=== PATIENT | female | born 1960 | race Caucasian/White ===

== ENCOUNTER → 2016-07-01 | Outpatient (REF) | payer OTHER ==
[~2016-07-01] MED LIST: AMLO5TAB2 PO; ASPI325T PO; ASPI81TA2 PO; ATEN50TA2 PO; ATOR1TAB21 PO; BENA10TA PO; CLON-412 PO; CLON0.3D TD; CRES20TA PO; DRIS50002 PO; DYAZCA PO; FLEEENE4 PR; GEMF600T PO; HYDR500C12 PO; HYDR50TA PO; LEVO100T5 PO; LEVO25TABR GT; LIDO5DIS36 TD; LORT5TAB PO; MAPA325T2 PO; MILKSUS PO; MIRA3350 PO; MULTTAB4 PO; NEUR100C PO; NYST10CR TOP; OMEP20CA3 PO; PAXI20TA3 PO; PHEN100VL PO; QUES4POW PO; SENO8.6T2 PO; TYLE325T5 PO; VISKEN PO; VITA100L PO; WARF05TA PO; ZOFR20TA PO
[2016-07-01 09:32] LABS: BASO % 0.6 % (0.0-1.0); EOS # 0.1 K/mm3 (0.0-0.50); LARGE UNSTAINED CELL # 0.1 K/mm3 (0.0-0.4); LARGE UNSTAINED CELL % 2.6 % (0.0-4.0); LYMPH # 0.7 K/mm3 (1.5-4.5); LYMPH % 19.7 % (24.0-44.0); MEAN CORPUSCULAR HEMOGLOBIN 37.8 pg (27.0-33.0); MEAN CORPUSCULAR HGB CONC 35.3 g/dl (32.0-36.5); MONO # 0.2 K/mm3 (0.0-0.8); MONO % 5.7 % (0.0-5.0); NEUTROPHILS # 2.5 K/mm3 (1.8-7.7); NEUTROPHILS % 68.4 % (36.0-66.0); PLATELET COUNT, AUTOMATED 108 k/mm3 (150-450); RED CELL DISTRIBUTION WIDTH 14.3 % (11.5-14.5); WHITE BLOOD COUNT 3.6 K/mm3 (4.0-10.0)
== END ==
LOC: SKLAB5 08:38
PROVIDERS: ATTEND Family Medicine
DX: C71.9 Malignant neoplasm of brain, unspecified (principal)

== ENCOUNTER → 2016-07-29 | Outpatient (REF) | payer MEDICAID ==
[2016-07-29 08:11] LABS: BASO % 0.5 % (0.0-1.0); EOS # 0.1 K/mm3 (0.0-0.50); EOS % 2.9 % (0.0-3.0); LARGE UNSTAINED CELL # 0.1 K/mm3 (0.0-0.4); LARGE UNSTAINED CELL % 2.6 % (0.0-4.0); LYMPH # 0.7 K/mm3 (1.5-4.5); LYMPH % 19.6 % (24.0-44.0); MEAN CORPUSCULAR HEMOGLOBIN 39.3 pg (27.0-33.0); MEAN CORPUSCULAR HGB CONC 35.3 g/dl (32.0-36.5); MEAN CORPUSCULAR VOLUME 111.3 fl (80.0-96.0); MONO # 0.2 K/mm3 (0.0-0.8); MONO % 6.5 % (0.0-5.0); NEUTROPHILS # 2.1 K/mm3 (1.8-7.7); NEUTROPHILS % 67.9 % (36.0-66.0); PLATELET COUNT, AUTOMATED 114 k/mm3 (150-450); RED CELL DISTRIBUTION WIDTH 14.4 % (11.5-14.5); WHITE BLOOD COUNT 3.1 K/mm3 (4.0-10.0)
== END ==
LOC: SKLAB5 08:16
PROVIDERS: ATTEND Family Medicine
DX: C71.9 Malignant neoplasm of brain, unspecified (principal); D64.9 Anemia, unspecified

== ENCOUNTER → 2016-08-26 | Outpatient (REF) | payer MEDICAID ==
[2016-08-26 10:05] LABS: BASO % 0.7 % (0.0-1.0); EOS # 0.1 K/mm3 (0.0-0.50); EOS % 3.3 % (0.0-3.0); LARGE UNSTAINED CELL # 0.1 K/mm3 (0.0-0.4); LARGE UNSTAINED CELL % 3.3 % (0.0-4.0); LYMPH # 0.6 K/mm3 (1.5-4.5); LYMPH % 15.7 % (24.0-44.0); MEAN CORPUSCULAR HEMOGLOBIN 39.8 pg (27.0-33.0); MEAN CORPUSCULAR VOLUME 108.9 fl (80.0-96.0); MONO # 0.2 K/mm3 (0.0-0.8); MONO % 4.9 % (0.0-5.0); NEUTROPHILS # 2.8 K/mm3 (1.8-7.7); NEUTROPHILS % 72.1 % (36.0-66.0); PLATELET COUNT, AUTOMATED 125 k/mm3 (150-450); WHITE BLOOD COUNT 3.8 K/mm3 (4.0-10.0)
[2016-08-26 10:25] LABS: MEAN CORPUSCULAR HGB CONC 36.5 g/dl (32.0-36.5)
== END ==
LOC: SKLAB5 07:10
PROVIDERS: ATTEND Family Medicine
DX: C71.9 Malignant neoplasm of brain, unspecified (principal)

== ENCOUNTER → 2016-09-09 | Outpatient (REF) | payer MEDICAID ==
[2016-09-09 13:23] LABS: CREATININE FOR GFR 1.46 MG/DL (0.55-1.02); GLOMERULAR FILTRATION RATE 39.2 (>51)
[2016-09-09 13:41] LABS: POTASSIUM SERUM 4.1 MEQ/L (3.5-5.1)
== END ==
LOC: SKLAB5 12:17
PROVIDERS: ATTEND Family Medicine
DX: C71.9 Malignant neoplasm of brain, unspecified (principal)

== ENCOUNTER → 2016-09-10 | Outpatient (REF) | payer MEDICAID ==
[2016-09-10 08:10] LABS: CREATININE FOR GFR 1.28 MG/DL (0.55-1.02); GLOMERULAR FILTRATION RATE 45.6 (>51); POTASSIUM SERUM 3.6 MEQ/L (3.5-5.1)
== END ==
LOC: SKLAB5 01:43
PROVIDERS: ATTEND Family Medicine
DX: E86.0 Dehydration (principal)

== ENCOUNTER → 2016-09-11 | Outpatient (REF) | payer MEDICAID ==
[2016-09-11 08:06] LABS: CALCIUM LEVEL 9.3 MG/DL (8.5-10.1); CREATININE FOR GFR 1.1 MG/DL (0.55-1.02); GLOMERULAR FILTRATION RATE 54.3 (>51); POTASSIUM SERUM 3.4 MEQ/L (3.5-5.1)
== END ==
LOC: SKLAB5 14:26
PROVIDERS: ATTEND Family Medicine
DX: E86.0 Dehydration (principal)

== ENCOUNTER → 2016-09-13 | Outpatient (REF) | payer MEDICAID ==
[2016-09-13 10:06] LABS: BASO % 0.4 % (0.0-1.0); EOS # 0.1 K/mm3 (0.0-0.50); EOS % 2.1 % (0.0-3.0); LARGE UNSTAINED CELL # 0.1 K/mm3 (0.0-0.4); LARGE UNSTAINED CELL % 1.3 % (0.0-4.0); LYMPH # 0.5 K/mm3 (1.5-4.5); LYMPH % 10.6 % (24.0-44.0); MEAN CORPUSCULAR HEMOGLOBIN 38.9 pg (27.0-33.0); MEAN CORPUSCULAR HGB CONC 35.7 g/dl (32.0-36.5); MEAN CORPUSCULAR VOLUME 108.9 fl (80.0-96.0); MONO # 0.2 K/mm3 (0.0-0.8); MONO % 4.1 % (0.0-5.0); NEUTROPHILS # 3.9 K/mm3 (1.8-7.7); NEUTROPHILS % 81.6 % (36.0-66.0); PLATELET COUNT, AUTOMATED 187 k/mm3 (150-450); RED CELL DISTRIBUTION WIDTH 13.9 % (11.5-14.5); WHITE BLOOD COUNT 4.8 K/mm3 (4.0-10.0)
[2016-09-13 10:10] LABS: ADD MORPHOLOGY? YES
[2016-09-13 10:11] LABS: BILIRUBIN,TOTAL 1.1 MG/DL (0.2-1.0); CREATININE FOR GFR 1.18 MG/DL (0.55-1.02); GLOMERULAR FILTRATION RATE 50.1 (>51); POTASSIUM SERUM 3.3 MEQ/L (3.5-5.1)
[2016-09-13 10:46] LABS: ANISOCYTOSIS 2+
== END ==
LOC: SKLAB5 08:24
PROVIDERS: ATTEND Family Medicine
DX: C71.9 Malignant neoplasm of brain, unspecified (principal)

== ENCOUNTER → 2016-09-15 | Outpatient (CLI) | payer MEDICAID ==
--- NOTE | 2016-09-15 13:27 | REP ---
MR BRAIN WITHOUT AND WITH CONTRAST: HISTORY: Glioblastoma. CONTRAST: ProHance 6 mL. COMPARISON: 12/11/2015 and 06/04/2016. The patient is status post left frontal craniectomy. Increased signal intensity on T2-weighted images is present in the left frontal and anterior left temporal and parietal lobes. There is dilatation of the overlying cortical sulci and anterior horn of the left lateral ventricle. This represents gliosis and encephalomalacia. Several small areas of increased signal intensity on T1-weighted images are present in the left frontal lobe. This represents chronic hemorrhage or dystrophic calcification. There are small areas of enhancement in the left frontal lobe. This is increased compared to study date 12/11/2015. There is no acute intraparenchymal hemorrhage, infarct, or midline shift. Areas of increased signal intensity on T2-weighted images are present in the periventricular and subcortical white matter. These are unchanged compared to the previous study. The ventricular system and cortical sulci are dilated consistent with mild volume loss. There is no extracerebral collection. The sinuses are clear. IMPRESSION: There is postoperative gliosis and encephalomalacia in the left frontal lobe. There are small areas of enhancement in the left frontal lobe that are increased compared to study date 12/11/2015 consistent with recurrent tumor. Signed by Ascencion Rosales MD 09/15/2016 01:44 P
== END ==
LOC: M RAD 10:59
PROVIDERS: ATTEND Internal Medicine Hematology & Oncology
DX: C71.9 Malignant neoplasm of brain, unspecified (principal)
CPT/HCPCS: 70553; A9576

== ENCOUNTER → 2016-09-20 | Outpatient (REF) | payer MEDICAID ==
[2016-09-20 08:13] LABS: CALCIUM LEVEL 10.7 MG/DL (8.5-10.1); CREATININE FOR GFR 1.19 MG/DL (0.55-1.02); GLOMERULAR FILTRATION RATE 49.6 (>51)
[2016-09-20 08:22] LABS: POTASSIUM SERUM 3.5 MEQ/L (3.5-5.1)
== END ==
LOC: SKLAB5 07:51
PROVIDERS: ATTEND Family Medicine
DX: E86.0 Dehydration (principal)

== ENCOUNTER → 2016-09-21 | Outpatient (REF) | payer MEDICAID ==
[2016-09-21 09:35] LABS: CALCIUM LEVEL 9.4 MG/DL (8.5-10.1); CREATININE FOR GFR 1.16 MG/DL (0.55-1.02); GLOMERULAR FILTRATION RATE 51.1 (>51); POTASSIUM SERUM 3.6 MEQ/L (3.5-5.1)
== END ==
LOC: SKLAB5 14:26
PROVIDERS: ATTEND Family Medicine
DX: E86.0 Dehydration (principal)

== ENCOUNTER → 2016-09-22 | Outpatient (REF) | payer MEDICAID ==
[2016-09-22 12:20] LABS: ANION GAP 6 MEQ/L (8-16); BLOOD UREA NITROGEN 24 MG/DL (7-18); CALCIUM LEVEL 9.3 MG/DL (8.5-10.1); CARBON DIOXIDE LEVEL 30 MEQ/L (21-32); CHLORIDE LEVEL 113 MEQ/L (98-107); GLOMERULAR FILTRATION RATE > 60.0 (>51); GLUCOSE, FASTING 116 MG/DL (70-105); POTASSIUM SERUM 3.4 MEQ/L (3.5-5.1); SODIUM LEVEL 149 MEQ/L (136-145)
== END ==
LOC: SKLAB5 07:36
PROVIDERS: ATTEND Family Medicine
DX: E86.0 Dehydration (principal)

== ENCOUNTER → 2016-09-27 | Outpatient (REF) | payer MEDICAID ==
[2016-09-27 09:43] LABS: MEAN CORPUSCULAR HEMOGLOBIN 39.8 pg (27.0-33.0); MEAN CORPUSCULAR HGB CONC 34.4 g/dl (32.0-36.5); MEAN CORPUSCULAR VOLUME 115.7 fl (80.0-96.0); PLATELET COUNT, AUTOMATED 131 k/mm3 (150-450); RED CELL DISTRIBUTION WIDTH 15.7 % (11.5-14.5); WHITE BLOOD COUNT 3.4 K/mm3 (4.0-10.0)
[2016-09-27 09:49] LABS: CALCIUM LEVEL 10.1 MG/DL (8.5-10.1); CREATININE FOR GFR 1.07 MG/DL (0.55-1.02); GLOMERULAR FILTRATION RATE 56.1 (>51); POTASSIUM SERUM 3.6 MEQ/L (3.5-5.1)
[2016-09-27 10:29] LABS: BASOPHILS 1 % (0-4); EOSINOPHILS 2 % (0-5)
== END ==
LOC: SKLAB5 06:43
PROVIDERS: ATTEND Family Medicine
DX: E86.0 Dehydration (principal)

== ENCOUNTER 2016-10-06 08:56 | Inpatient (IN) | payer MEDICAID ==
[~2016-10-06] VITALS: Ht 160 cm; Wt 58.6 kg
[2016-10-06 10:26] LABS: BASO % 0.4 % (0.0-1.0); EOS % 0.4 % (0.0-3.0); LARGE UNSTAINED CELL # 0.2 K/mm3 (0.0-0.4); LARGE UNSTAINED CELL % 1.6 % (0.0-4.0); LYMPH # 1.1 K/mm3 (1.5-4.5); LYMPH % 8.5 % (24.0-44.0); MEAN CORPUSCULAR HEMOGLOBIN 40.2 pg (27.0-33.0); MEAN CORPUSCULAR HGB CONC 33.9 g/dl (32.0-36.5); MEAN CORPUSCULAR VOLUME 118.5 fl (80.0-96.0); MONO # 0.6 K/mm3 (0.0-0.8); MONO % 5.6 % (0.0-5.0); NEUTROPHILS # 9.3 K/mm3 (1.8-7.7); NEUTROPHILS % 83.5 % (36.0-66.0); PLATELET COUNT, AUTOMATED 310 k/mm3 (150-450); RED CELL DISTRIBUTION WIDTH 15.4 % (11.5-14.5); WHITE BLOOD COUNT 11.1 K/mm3 (4.0-10.0)
[2016-10-06 10:37] LABS: CALCIUM LEVEL 10.9 MG/DL (8.5-10.1); CREATININE FOR GFR 1.87 MG/DL (0.55-1.02); GLOMERULAR FILTRATION RATE 29.4 (>51); POTASSIUM SERUM 3.5 MEQ/L (3.5-5.1)
[2016-10-06] MEDS ORDERED: NS 1,000 ML IV ONE (11:00)
[2016-10-06 11:05] LABS: ADD MORPHOLOGY? YES
[2016-10-06 11:08] LABS: ANISOCYTOSIS 1+; PLATELET CLUMPS SMALL AMT
[2016-10-06] MEDS ORDERED: NS 1,000 ML IV SCH (12:54)
--- NOTE | 2016-10-06 14:23 | REP ---
Bilateral lower extremity Duplex Doppler venous ultrasound: Real time compression and duplex Doppler interrogation of the bilateral lower extremity deep venous system is performed. Bilaterally, the common femoral and superficial femoral veins are fully compressible with transducer pressure and demonstrate normal spontaneous and phasic flow, without evidence of deep venous thrombosis. The popliteal veins could not be visualized due to patient immobility. Impression: No evidence of deep venous thrombosis of the bilateral lower extremity femoral venous system. The popliteal veins could not be visualized due to patient immobility. Signed by Kaleb Schroeder MD 10/06/2016 02:15 P
[2016-10-06 14:25] LABS: CALCIUM LEVEL 9.1 MG/DL (8.5-10.1); CREATININE FOR GFR 1.53 MG/DL (0.55-1.02); GLOMERULAR FILTRATION RATE 37.1 (>51); POTASSIUM SERUM 3.4 MEQ/L (3.5-5.1)
--- NOTE | 2016-10-06 14:53 | HPE ---
DATE OF ADMISSION: 10/06/2016 REASON FOR ADMISSION: Dehydration. PRIMARY CARE PROVIDER: Dr. Veras HISTORY OF PRESENT ILLNESS: The patient is a 56-year-old female with past medical history significant for glioblastoma, history of cerebrovascular accident (CVA), history of hypernatremic dehydration, presented to the emergency room from [facility] due to dehydration likely secondary to poor oral intake and increased lethargy. Most of the history is obtained from the previous medical records, Dr. Veras, and emergency room records. The patient is unable to answer any questions at this time. She is awake but not answering any questions. REVIEW OF SYSTEMS: Unable to obtain due to the patient's inability to answer any questions at this time. PAST MEDICAL HISTORY: From previous records are significant for glioblastoma, hypernatremic dehydration, depression, hypertension, hyperlipidemia, gastroesophageal reflux disease (GERD). PAST SURGICAL HISTORY: Brain surgery in 2007, removal of a glioblastoma. SOCIAL HISTORY: The patient is from [facility]. FAMILY HISTORY: Noncontributory. ALLERGIES: No known drug allergies. CURRENT HOME MEDICATIONS: Include: - Tylenol 650 mg by mouth every 4 hours as needed for pain or fever - amlodipine 5 mg by mouth twice a day - aspirin 325 mg by mouth daily - atorvastatin 40 mg by mouth daily - clonidine 0.1 mg by mouth twice a day - omeprazole 40 mg by mouth daily HEENT: Pupils equal, round, and reactive to light accommodation. Neck: Supple. Lungs: Clear to auscultation bilaterally. Abdomen: Soft, nontender. Extremities: Mild tenderness to palpation. The patient said "ouch" when examining her lower extremity. Neurological: Unable to do a full neurological examination at this time. PHYSICAL FINDINGS: Vital signs on admission: temperature 97.5, pulse 132, blood pressure 136/79, pulse oximetry 96% on room air. LABORATORY FINDINGS: Sodium 169, potassium 3.4, chloride 133, BUN 62, creatinine 1.53, fasting glucose 113, calcium 9.1. WBC is 11.1, hemoglobin 15, hematocrit 44.2, platelet count 310. ASSESSMENT AND PLAN: 1. Dehydration. Likely secondary to poor oral intake. The patient received 1 liter bolus in the emergency room. We will continue intravenous (IV) fluids. The patient's fluid deficit was calculated to be 4.5 liters. We will continue IV fluids. 2. Hypernatremia. Likely secondary to dehydration. We will consult Dr. Harrell Continue IV hydration. 3. History of glioblastoma. Likely contributing to the patient's altered mentation. Per previous records, the patient's oncologist stated that there is no further treatment for her. We will defer to primary team as far as a family discussion or long-term plans. 4. History of hypertension. The patient's blood pressure is currently controlled. We will continue the patient's home medications. 5. History of hyperlipidemia. Continue the patient's home medications. 6. Deep venous thrombosis (DVT) prophylaxis. We will order ultrasound to rule out any DVT. If negative, we will place thromboembolic deterrents (TEDs) and sequentials for DVT prophylaxis. MTDD
[2016-10-06] MEDS ORDERED: MIRA33504 PO (15:37)
[2016-10-06] MEDS ORDERED: DULC10SU2 PR (15:37)
[2016-10-06] MEDS ORDERED: CLON-412 PO (15:37)
[2016-10-06] MEDS ORDERED: ENEM1ENE4 PR (15:37)
[2016-10-06] MEDS ORDERED: MILKSUS PO (15:37)
[2016-10-06] MEDS ORDERED: ACEP650S PR (15:37)
[2016-10-06] MEDS ORDERED: ENSULIQ64 PO (15:37)
[2016-10-06] MEDS ORDERED: TYLE325T5 PO (15:37)
[2016-10-06] MEDS ORDERED: SENN1TAB2 PO (15:37)
[2016-10-06] MEDS ORDERED: ASPI1TAB PO (15:37)
[2016-10-06] MEDS ORDERED: HYDR500C12 PO (15:37)
[2016-10-06] MEDS ORDERED: AMLO5TAB2 PO (15:37)
[2016-10-06] MEDS ORDERED: MIRT30TA3 PO (15:37)
[2016-10-06 16:45] VITALS: BP 133/66
[2016-10-06 17:34] LABS: CALCIUM LEVEL 8.9 MG/DL (8.5-10.1); CREATININE FOR GFR 1.45 MG/DL (0.55-1.02); GLOMERULAR FILTRATION RATE 39.5 (>51); POTASSIUM SERUM 3.4 MEQ/L (3.5-5.1)
[2016-10-06] MEDS ORDERED: D5W 1,000 ML IV SCH (18:15)
[2016-10-06] MEDS: KCL 20MEQ IN D5W 1000ML 1,000 ML IV SCH (18:17)
[2016-10-06 20:00] VITALS: BP 138/78
[2016-10-06 20:25] LABS: CALCIUM LEVEL 9.4 MG/DL (8.5-10.1); CREATININE FOR GFR 1.48 MG/DL (0.55-1.02); GLOMERULAR FILTRATION RATE 38.6 (>51); POTASSIUM SERUM 3.4 MEQ/L (3.5-5.1)
[2016-10-06] MEDS: amLODIPine 5 MG TAB PO SCH (22:24)
[2016-10-06] MEDS: ACETAMINOPHEN 650 MG SUPP PR PRN (23:40)
[2016-10-07] VITALS (7 sets, daily range): BP systolic 130–143; BP diastolic 68–90
[2016-10-07 00:28] LABS: CALCIUM LEVEL 8.9 MG/DL (8.5-10.1); CREATININE FOR GFR 1.25 MG/DL (0.55-1.02); GLOMERULAR FILTRATION RATE 46.9 (>51); POTASSIUM SERUM 3.3 MEQ/L (3.5-5.1)
[2016-10-07 05:07] LABS: BASO % 0.3 % (0.0-1.0); EOS # 0.1 K/mm3 (0.0-0.50); EOS % 2.2 % (0.0-3.0); LARGE UNSTAINED CELL # 0.2 K/mm3 (0.0-0.4); LARGE UNSTAINED CELL % 3.3 % (0.0-4.0); LYMPH # 0.9 K/mm3 (1.5-4.5); LYMPH % 13.8 % (24.0-44.0); MEAN CORPUSCULAR HEMOGLOBIN 38.6 pg (27.0-33.0); MEAN CORPUSCULAR HGB CONC 32.7 g/dl (32.0-36.5); MEAN CORPUSCULAR VOLUME 118.2 fl (80.0-96.0); MONO # 0.2 K/mm3 (0.0-0.8); MONO % 3.7 % (0.0-5.0); NEUTROPHILS # 4.2 K/mm3 (1.8-7.7); NEUTROPHILS % 76.6 % (36.0-66.0); PLATELET COUNT, AUTOMATED 218 k/mm3 (150-450); RED CELL DISTRIBUTION WIDTH 15.4 % (11.5-14.5); WHITE BLOOD COUNT 5.5 K/mm3 (4.0-10.0)
[2016-10-07] MEDS: KCL 20MEQ IN D5W 1000ML 1,000 ML IV SCH ×2 (05:15→21:18)
[2016-10-07 05:23] LABS: CALCIUM LEVEL 8.4 MG/DL (8.5-10.1); CREATININE FOR GFR 1.18 MG/DL (0.55-1.02); GLOMERULAR FILTRATION RATE 50.1 (>51); POTASSIUM SERUM 3.5 MEQ/L (3.5-5.1)
[2016-10-07 09:01] LABS: CALCIUM LEVEL 9.1 MG/DL (8.5-10.1); CREATININE FOR GFR 1.11 MG/DL (0.55-1.02); GLOMERULAR FILTRATION RATE 53.7 (>51); POTASSIUM SERUM 3.3 MEQ/L (3.5-5.1)
[2016-10-07] MEDS: amLODIPine 5 MG TAB PO SCH ×2 (09:17→21:18)
[2016-10-07] MEDS ORDERED: POTASSIUM CHLORIDE INJ 40 MEQ in D5W 1,000 ML IV SCH (11:00)
[2016-10-07 13:32] LABS: ANION GAP 8 MEQ/L (8-16); BLOOD UREA NITROGEN 43 MG/DL (7-18); CALCIUM LEVEL 9.2 MG/DL (8.5-10.1); CARBON DIOXIDE LEVEL 25 MEQ/L (21-32); CHLORIDE LEVEL 130 MEQ/L (98-107); GLOMERULAR FILTRATION RATE > 60.0 (>51); GLUCOSE, FASTING 98 MG/DL (70-105); SODIUM LEVEL 163 MEQ/L (136-145)
[2016-10-07] MEDS: ACETAMINOPHEN 650 MG SUPP PR PRN (16:14)
--- NOTE | 2016-10-07 20:35 | CR ---
DATE OF CONSULTATION: 10/07/2016 REQUESTING PHYSICIAN: Bill Klein DO CONSULTING PHYSICIAN: Chuy Harrell MD REASON FOR CONSULTATION: Management of severe hypernatremia. CHIEF COMPLAINT: Patient presented to the hospital yesterday with dehydration. NOTE: History was obtained from the medical records and from the primary medical team, patient is unable to provide any reliable history at this time. HISTORY OF PRESENT ILLNESS: Patient is a 56-year-old female with past medical history of glioblastoma, history of CVA, and hypernatremia and dehydration in the past. She is a resident of [facility]. She was having poor oral intake, altered mental status, and worsening lethargy so she was sent to the emergency room for dehydration and poor oral intake. On arrival in the emergency room, she was found to have a sodium of 166. She was given a bolus of normal saline which bumped her sodium from 166 to 169. Nephrology service was called for further management of hypernatremia. Patient was already discussed with the salon/spa manager hospitalist yesterday by me and on our recommendation, patient was started on 5% dextrose in water (D5W) plus 20 mEq of potassium chloride (KCl) at 100 mL/hour. The patient was getting every 4 hours BMP overnight and her sodium has dropped from 169 to 161 as of today's labs. PAST MEDICAL HISTORY: Patient has a past medical history of glioblastoma, depression, hypertension, hyperlipidemia, gastroesophageal reflux disease, history of hypernatremia and dehydration in the past. PAST SURGICAL HISTORY: History of brain surgery in 2007 and removal of glioblastoma. ALLERGIES: Patient is allergic to wool fabric. FAMILY HISTORY: Unable to obtain the family history at this time. SOCIAL HISTORY: Patient is a resident of [facility]. REVIEW OF SYSTEMS: Patient is unable to provide any reliable review of systems to me. She is unable to answer any questions because of expressive aphasia. HOME MEDICATIONS: Patient's home medications include: - Tylenol - amlodipine 5 mg twice a day - aspirin 325 mg by mouth daily - atorvastatin 40 mg daily - clonidine 0.1 mg by mouth twice a day - omeprazole 40 mg by mouth daily PHYSICAL EXAMINATION: GENERAL: Patient is awake and alert, unable to communicate, laying in the bed, no apparent distress. VITAL SIGNS: Temperature is 98 degrees Fahrenheit, blood pressure 143/78, pulse 106, respiratory rate 20, saturating 98% on room air. INTAKE/OUTPUT: Urine output is not recorded. She had three incontinent voids yesterday, five incontinent voids so far today. Patient had 1600 mL intake yesterday and 1470 mL intake so far today. HEAD and NECK EXAM: Pupils equally round and reactive to light. Mucous membranes are moist. Neck is supple, there is no jugular venous distention (JVD). CARDIOVASCULAR: S1, S2, tachycardia. No murmur, rub, or gallop. RESPIRATORY: Chest is clear to auscultation bilaterally. Decreased breath sounds at the bases. ABDOMEN: Soft, nontender, positive bowel sounds. No organomegaly. EXTREMITIES: No clubbing or cyanosis. Patient has 2+ pitting edema of the bilateral lower extremities. CENTRAL NERVOUS SYSTEM (GRE[employer]UTTER): Patient does not communicate. She is unable to move her lower extremities and she does not follow commands. Otherwise, she is awake. LABORATORY REVIEW: CBC showed WBC 5.5, hemoglobin 11.5, platelets 218. BMP showed sodium in the afternoon has increased to 163, potassium 4, chloride 130, bicarbonate 25, BUN 43, creatinine 1, her creatinine was 1.87 on admission, calcium 9.2. Microbiology: No cultures available at this time. IMAGING: Doppler ultrasound of the bilateral lower extremities was done which showed no evidence of deep venous thrombosis (DVT) of the bilateral lower extremities. CURRENT INPATIENT MEDICATIONS: Patient's inpatient medications include KCl 40 mEq in D5W at 100 mL/hour which was changed this morning, Tylenol suppository as needed, and amlodipine 5 mg by mouth twice a day. ASSESSMENT: 56-year-old female with past medical history of glioblastoma, chronically bedridden, nonverbal, admitted at this time because of dehydration, acute kidney injury, and hypernatremia. PLAN: 1. Dehydration, it is secondary to poor oral intake. Patient got 1 liter normal saline bolus. She is currently getting IV fluid as mentioned below. 2. Hypernatremia, it is secondary to patient's inability to drink water or ask for water. Patient is currently on potassium chloride (KCl) 40 mEq in 5% dextrose in water (D5W). Her potassium has improved to 4, however her sodium is still in 160s. She has a more than 6 liter water deficit. I am going to change the IV fluid to potassium chloride (KCl) 20 mEq in 5% dextrose in water (D5W) and increase the rate to 125 mL/hour. Continue basic metabolic panel (BMP) every 8 hours at this time. 3. Acute kidney injury, it is secondary to dehydration and volume depletion. Creatinine on admission was 1.8. It is significantly getting better. On the latest basic metabolic panel (BMP), creatinine has improved to 1 at this time. 4. Hypertension. Blood pressure is acceptable at this time. Continue current dose of amlodipine 5 mg by mouth twice a day. If needed, patient can be started on Bystolic for tachycardia. 5. History of glioblastoma and chronically bedridden. Patient is nonverbal. She has expressive aphasia. She is totally dependent for activities of daily life. Rest of the management is as per primary team. Thank you for involving us in the care of this patient. We shall be happy to follow the patient along with you tomorrow morning. Orders were already placed in the system. Plan of care was discussed with the patient's registered nurse (RN) at the bedside.
[2016-10-07 21:03] LABS: ALBUMIN 2.7 GM/DL (3.2-5.2); ANION GAP 3 MEQ/L (8-16); BLOOD UREA NITROGEN 37 MG/DL (7-18); CALCIUM LEVEL 8.6 MG/DL (8.5-10.1); CARBON DIOXIDE LEVEL 28 MEQ/L (21-32); CHLORIDE LEVEL 127 MEQ/L (98-107); CREATININE FOR GFR 0.99 MG/DL (0.55-1.02); GLOMERULAR FILTRATION RATE > 60.0 (>51); GLUCOSE, FASTING 93 MG/DL (70-105); PHOSPHORUS LEVEL 1.1 MG/DL (2.5-4.9); SODIUM LEVEL 158 MEQ/L (136-145)
[2016-10-07 21:04] LABS: MAGNESIUM LEVEL 2.8 MG/DL (1.8-2.4); PHOSPHORUS LEVEL 1.1 MG/DL (2.5-4.9)
--- NOTE | 2016-10-08 01:12 | IPNPDOC ---
Subjective Date Seen The patient was seen on 10/07/16. Subjective Chief Complaint/HPI The patient is a 56-year-old female admitted with a reason for visit of Dehydration. Events since last encounter Mother is present at the bedside. Recent progress note from oncology is obtained and reviewed with patient and her mother. General: Reports: ROS Unobtainable Objective Physical Examination General Exam: Positive: Alert, Cooperative Neck Exam: Positive: Supple Chest Exam: Positive: Clear to auscultation Heart Exam: Positive: Rate Normal, Regular Rhythm Abdomen Exam: Positive: Normal bowel sounds, Soft, Negative: Tenderness Extremity Exam: Negative: Edema Skin Exam: Positive: Nl turgor and temperature Neuro Exam: Negative: Strength at 5/5 X4 ext (R hand squeeze much weaker than L ) Assessment /Plan Problems (1) Glioblastoma Status: Acute Problem Text: Per most recent oncology note, this is recurrent and the patient is a hospice candidate. Discussed prognosis with patient and her mother. They are not sure what they want to do at this time. (2) Dehydration with hypernatremia Status: Acute Problem Text: Nephrology consulted and managing fluids. (3) Expressive aphasia Status: Acute Problem Text: Patient speaks single words; once managed to string together a few for a phrase. She does shake and nod her head. (4) Hypertension Status: Chronic Problem Text: Home amlodipine continued. Plan/VTE VTE Prophylaxis Ordered?: Yes VS, I&O, 24H, Fishbone Vital Signs/I&O Vital Signs Date Time Temp Pulse Resp B/P Pulse Ox O2 Delivery O2 Flow Rate FiO2 10/07/16 23:20 98.5 100 17 136/71 100 Room Air I&O- Last 24 Hours up to 6 AM 10/08/16 06:00 Intake Total 1625 ml Output Total 0 ml Balance 1625 ml Laboratory Data 24H LABS Laboratory Tests 2 10/07/16 04:44: Anion Gap 7L, White Blood Count 5.5, Red Blood Count 2.97L, Hemoglobin 11.5#L, Hematocrit 35.1L, Mean Corpuscular Volume 118.2H, Mean Corpuscular Hemoglobin 38.6H, Mean Corpuscular Hemoglobin Concent 32.7, Red Cell Distribution Width 15.4H, Platelet Count 218, Neutrophils (%) (Auto) 76.6H, Lymphocytes (%) (Auto) 13.8L, Monocytes (%) (Auto) 3.7, Eosinophils (%) (Auto) 2.2, Basophils (%) (Auto ) 0.3, Neutrophils # (Auto) 4.2, Lymphocytes # (Auto) 0.9L, Monocytes # (Auto) 0.2, Eosinophils # (Auto) 0.1, Basophils # (Auto) 0.0, Blood Urea Nitrogen 53H, Creatinine 1.18H, Sodium Level 165*H, Potassium Level 3.5, Chloride Level 132H, Carbon Dioxide Level 26, Calcium Level 8.4L, Glomerular Filtration Rate 50.1L, Large Unclassified Cells # 0.2, Large Unclassified Cells % 3.3 10/07/16 08:31: Anion Gap 6L, Blood Urea Nitrogen 47H, Creatinine 1.11H, Sodium Level 161*H, Potassium Level 3.3L, Chloride Level 129H, Carbon Dioxide Level 26, Calcium Level 9.1, Glomerular Filtration Rate 53.7, Lactic Acid Level 1.0 10/07/16 12:24: Anion Gap 8, Blood Urea Nitrogen 43H, Creatinine 1.00, Sodium Level 163*H, Potassium Level 4.0#, Chloride Level 130H, Carbon Dioxide Level 25, Calcium Level 9.2, Glomerular Filtration Rate > 60.0 10/07/16 20:27: Anion Gap 3L, Blood Urea Nitrogen 37H, Creatinine 0.99, Sodium Level 158H, Potassium Level 4.0, Chloride Level 127H, Carbon Dioxide Level 28, Calcium Level 8.6, Glomerular Filtration Rate > 60.0, Albumin 2.7L, Magnesium Level 2.8H , Phosphorus Level 1.1L CBC/BMP Laboratory Tests 10/07/16 04:44 Calcium Level 8.4 L, Red Blood Count 2.97 L, Mean Corpuscular Volume 118.2 H, Mean Corpuscular Hemoglobin 38.6 H, Mean Corpuscular Hemoglobin Concent 32.7, Red Cell Distribution Width 15.4 H, Neutrophils (%) (Auto) 76.6 H, Lymphocytes ( %) (Auto) 13.8 L, Monocytes (%) (Auto) 3.7, Eosinophils (%) (Auto) 2.2, Basophils (%) (Auto) 0.3, Neutrophils # (Auto) 4.2, Lymphocytes # (Auto) 0.9 L, Monocytes # (Auto) 0.2, Eosinophils # (Auto) 0.1, Basophils # (Auto) 0.0 10/07/16 08:31 Calcium Level 9.1 10/07/16 12:24 Calcium Level 9.2 10/07/16 20:27 Anion Gap 3 L MANI ALMARAZ DO Oct 08, 2016 01:12
[2016-10-08] MEDS: KCL 20MEQ IN D5W 1000ML 1,000 ML IV SCH ×3 (04:53→23:41)
[2016-10-08 05:30] LABS: ALBUMIN 2.7 GM/DL (3.2-5.2); ANION GAP 6 MEQ/L (8-16); BLOOD UREA NITROGEN 24 MG/DL (7-18); CALCIUM LEVEL 8.3 MG/DL (8.5-10.1); CARBON DIOXIDE LEVEL 25 MEQ/L (21-32); CHLORIDE LEVEL 122 MEQ/L (98-107); CREATININE FOR GFR 0.82 MG/DL (0.55-1.02); GLOMERULAR FILTRATION RATE > 60.0 (>51); GLUCOSE, FASTING 91 MG/DL (70-105); POTASSIUM SERUM 3.9 MEQ/L (3.5-5.1); SODIUM LEVEL 153 MEQ/L (136-145)
[2016-10-08 05:53] LABS: MEAN CORPUSCULAR HGB CONC 32.4 g/dl (32.0-36.5); MEAN CORPUSCULAR VOLUME 117.3 fl (80.0-96.0); PLATELET COUNT, AUTOMATED 161 k/mm3 (150-450); RED CELL DISTRIBUTION WIDTH 14.5 % (11.5-14.5); WHITE BLOOD COUNT 3.6 K/mm3 (4.0-10.0)
[2016-10-08 06:00] VITALS: BP 141/74
[2016-10-08 06:21] LABS: BASOPHILS 1 % (0-4); EOSINOPHILS 6 % (0-5); NUCLEATED RED BLOOD CELL 3 % (0-0)
[2016-10-08 06:22] LABS: ANISOCYTOSIS 1+; POLYCHROMASIA 1+
--- NOTE | 2016-10-08 08:13 | IPNPDOC ---
Subjective Date Seen The patient was seen on 10/08/16. Subjective Chief Complaint/HPI The patient is a 56-year-old female admitted with a reason for visit of Dehydration. Events since last encounter Mildly improved mentation. Nephro consulting. sodium levels coming down. Discussion held with patient and mother regarding end of life care yesterday. No decision made yet. General: Reports: ROS Unobtainable Objective Physical Examination General Exam: Positive: Alert, Cooperative Neck Exam: Positive: Supple Chest Exam: Positive: Clear to auscultation Heart Exam: Positive: Rate Normal, Regular Rhythm Abdomen Exam: Positive: Normal bowel sounds, Soft, Negative: Tenderness Extremity Exam: Negative: Edema Skin Exam: Positive: Nl turgor and temperature Neuro Exam: Negative: Strength at 5/5 X4 ext (R hand squeeze much weaker than L ) Psych Exam: Positive: Other (vague responses, repeats statements from provider) Assessment /Plan Problems (1) Glioblastoma Status: Acute Problem Text: Per most recent oncology note, this is recurrent and the patient is a hospice candidate. Discussed prognosis with patient and her mother. They are not sure what they want to do at this time. (2) Dehydration with hypernatremia Status: Acute Problem Text: Nephrology consulted and managing fluids. (3) Expressive aphasia Status: Acute Problem Text: Patient speaks single words; once managed to string together a few for a phrase. She does shake and nod her head. (4) Hypertension Status: Chronic Problem Text: Home amlodipine continued. Plan/VTE VTE Prophylaxis Ordered?: Yes Plan Attending note: I saw and evaluated the patient, and I agree with the plan of care as discuss and documented above. Hypernatremia resolving appropriately. Instructed nursing to stop D5W if sodium drops below 145. Nephrology increased D5W KCl to 125 mls/ hr. Pt mentating slightly better, and well enough to tell me that she is not ready to pursue hospice. She would like to have a plan in place to maintain her quality of life and return to the [facility]. However, she does state that if she worsens, she would prefer to at home with her family. Jacobo Garcia MD VS, I&O, 24H, Fishbone Vital Signs/I&O Vital Signs Date Time Temp Pulse Resp B/P Pulse Ox O2 Delivery O2 Flow Rate FiO2 10/08/16 06:00 96.6 97 15 141/74 98 Room Air I&O- Last 24 Hours up to 6 AM 10/08/16 06:00 Intake Total 1625 ml Output Total 0 ml Balance 1625 ml Laboratory Data 24H LABS Laboratory Tests 2 10/07/16 08:31: Anion Gap 6L, Blood Urea Nitrogen 47H, Creatinine 1.11H, Sodium Level 161*H, Potassium Level 3.3L, Chloride Level 129H, Carbon Dioxide Level 26, Calcium Level 9.1, Glomerular Filtration Rate 53.7, Lactic Acid Level 1.0 10/07/16 12:24: Anion Gap 8, Blood Urea Nitrogen 43H, Creatinine 1.00, Sodium Level 163*H, Potassium Level 4.0#, Chloride Level 130H, Carbon Dioxide Level 25, Calcium Level 9.2, Glomerular Filtration Rate > 60.0 10/07/16 20:27: Anion Gap 3L, Blood Urea Nitrogen 37H, Creatinine 0.99, Sodium Level 158H, Potassium Level 4.0, Chloride Level 127H, Carbon Dioxide Level 28, Calcium Level 8.6, Glomerular Filtration Rate > 60.0, Albumin 2.7L, Magnesium Level 2.8H , Phosphorus Level 1.1L 10/08/16 04:57: Anion Gap 6L, Blood Urea Nitrogen 24H, Creatinine 0.82, Sodium Level 153H, Potassium Level 3.9, Chloride Level 122H, Carbon Dioxide Level 25, Calcium Level 8.3L, Glomerular Filtration Rate > 60.0, Albumin 2.7L, Phosphorus Level 1.0L, Anisocytosis 1+, White Blood Count 3.6L, Red Blood Count 2.94L, Hemoglobin 11.2L, Hematocrit 34.5L, Mean Corpuscular Volume 117.3H, Mean Corpuscular Hemoglobin 38.0H, Mean Corpuscular Hemoglobin Concent 32.4, Red Cell Distribution Width 14.5, Platelet Count 161, Neutrophils (%) (Auto) , Lymphocytes (%) (Auto) , Monocytes (%) (Auto) , Eosinophils (%) (Auto) , Basophils (%) (Auto) , Neutrophils # (Auto) , Lymphocytes # (Auto) , Monocytes # (Auto) , Eosinophils # (Auto) , Basophils # (Auto) , Basophils (Manual) 1, Eosinophils (Manual) 6H, Large Unclassified Cells # , Large Unclassified Cells % , Lymphocytes (Manual) 26, Macrocytosis 2+, Monocytes (Manual) 4, Neutrophils 63, Nucleated Red Blood Cells 3H, Platelet Estimate NORMAL, Polychromasia 1+ CBC/BMP Laboratory Tests 10/07/16 08:31 Calcium Level 9.1 10/07/16 12:24 Calcium Level 9.2 10/07/16 20:27 Anion Gap 3 L 10/08/16 04:57 Anion Gap 6 L, Red Blood Count 2.94 L, Mean Corpuscular Volume 117.3 H, Mean Corpuscular Hemoglobin 38.0 H, Mean Corpuscular Hemoglobin Concent 32.4, Red Cell Distribution Width 14.5, Neutrophils (%) (Auto) , Lymphocytes (%) (Auto) , Monocytes (%) (Auto) , Eosinophils (%) (Auto) , Basophils (%) (Auto) , Neutrophils # (Auto) , Lymphocytes # (Auto) , Monocytes # (Auto) , Eosinophils # (Auto) , Basophils # (Auto) Lala Laureano Oct 08, 2016 08:13 JACOBO GARCIA MD Oct 08, 2016 17:12
[2016-10-08] MEDS ORDERED: POTASSIUM PHOSPHATE INJ 30 MMOL in D5W 500 ML IV ONE (10:00)
[2016-10-08] MEDS: amLODIPine 5 MG TAB PO SCH ×2 (10:06→20:59)
[2016-10-08 14:00] VITALS: BP 134/72
--- NOTE | 2016-10-08 16:35 | IPN ---
DATE: 10/08/2016 SUBJECTIVE: The patient was seen and examined at the bedside today in the morning. She is much more awake and alert today. She is actually able to communicate with me. She was able to answer some questions. Her sodium level is improving. Sodium this morning was 153. The patient has very low phosphorus levels. She is still nothing by mouth and her hypokalemia is improved now. REVIEW OF SYSTEMS: The patient is unable to provide any reliable review of systems, but she denies any pain. She denies any chest pain or shortness of breath, and she denies nausea or vomiting as well. OBJECTIVE: VITAL SIGNS: Temperature is 96.6 degrees Fahrenheit, blood pressure is 141/74, pulse is 97, respiratory rate of 15, saturating 98% on room air. INTAKE AND OUTPUT: Urine output is not recorded because she is incontinent. She had almost five voids yesterday, four voids so far today since overnight. Bed scale weight is not available today. PHYSICAL EXAMINATION: GENERAL: The patient is awake, alert, and oriented times one, lying in bed no apparent distress. HEAD/NECK: Extraocular muscles intact. Pupils equal, round, and reactive to light. Mucous membranes are moist. Her tongue is slightly coated. Neck is supple. There is no jugular venous distention (JVD). CARDIOVASCULAR: S1, S2. Regular rate. No murmur, rub, or gallop. RESPIRATORY: Chest is clear to auscultation bilaterally. Bilaterally equal air entry. No rales or rhonchi. ABDOMEN: Soft, nontender. Positive bowel sounds. No organomegaly. EXTREMITIES: No clubbing or cyanosis. She has very low muscle tone in the bilateral lower extremities. Otherwise, she does not have any edema. CENTRAL NERVOUS SYSTEM ((CIGAR PACKING EXAMINER): The patient is unable to move bilateral lower extremities. Power is almost 4/5 in the right upper extremity and 5/5 in the left upper extremity. The patient is able to communicate today, and she is able to answer a few questions. LABORATORY DATA: CBC showed WBC 3.6, hemoglobin 11.2, platelets are 161. BMP showed sodium 152, potassium 3.9, chloride 122, bicarbonate 25, BUN is 24, creatinine is 0.8. Calcium is 8.3. Phosphorus is 1. Albumin is 2.7. CURRENT MEDICATIONS: The patient's medications were all reviewed by me. I have changed the intravenous (IV) fluid rate to 100 mL an hour. I have ordered a dose of potassium phosphate 30 mmol IV times one dose, and the patient continues to be on amlodipine. ASSESSMENT: A 56-year-old female with past medical history of glioblastoma, status post brain surgery in the past, chronically bedridden, admitted this time because of dehydration, acute kidney injury and hypernatremia. PLAN: 1. Dehydration: It is secondary to poor oral intake. The patient's hydration status is significantly getting better. She is much more awake and alert today. 2. Hypernatremia. Hypernatremia is secondary to volume depletion and inability of the patient to drink water. She was on IV dextrose 5% in water (D5W) plus 20 mEq potassium chloride at 125 mL an hour. Sodium is significantly improving. It is 153 today. I have changed the IV fluid rate to 100 mL an hour now. Continue basic metabolic panel (bmp) every eight hours for now. 3. Acute kidney injury: Acute kidney injury was secondary to dehydration and volume depletion. Creatinine is significantly better today. It is 0.8. 4. Hypophosphatemia: Phosphorus is 1, which is very low. I have ordered a dose of potassium phosphate 30 mmol IV times one dose. 5. Hypertension. Continue current dose of amlodipine. Blood pressure is acceptable at this time. No need of clonidine at this time. 6. History of glioblastoma and chronically bedridden. The patient is much more alert today. She is able to communicate. She is still nothing by mouth. She is totally dependent on nursing care for activities of daily life. Goals of care discussion is up to primary care team.
[2016-10-08 20:37] LABS: ALBUMIN 2.7 GM/DL (3.2-5.2); ANION GAP 7 MEQ/L (8-16); BLOOD UREA NITROGEN 12 MG/DL (7-18); CALCIUM LEVEL 8.1 MG/DL (8.5-10.1); CARBON DIOXIDE LEVEL 23 MEQ/L (21-32); CHLORIDE LEVEL 116 MEQ/L (98-107); CREATININE FOR GFR 0.63 MG/DL (0.55-1.02); GLOMERULAR FILTRATION RATE > 60.0 (>51); GLUCOSE, FASTING 86 MG/DL (70-105); PHOSPHORUS LEVEL 2.3 MG/DL (2.5-4.9); POTASSIUM SERUM 4.1 MEQ/L (3.5-5.1); SODIUM LEVEL 146 MEQ/L (136-145)
[2016-10-08 22:00] VITALS: BP 123/61
[2016-10-09 06:00] VITALS: BP 119/70
[2016-10-09 06:11] LABS: BASO % 0.4 % (0.0-1.0); EOS # 0.1 K/mm3 (0.0-0.50); EOS % 2.1 % (0.0-3.0); LARGE UNSTAINED CELL # 0.1 K/mm3 (0.0-0.4); LARGE UNSTAINED CELL % 3.1 % (0.0-4.0); LYMPH # 0.6 K/mm3 (1.5-4.5); LYMPH % 15.1 % (24.0-44.0); MEAN CORPUSCULAR HEMOGLOBIN 39.7 pg (27.0-33.0); MEAN CORPUSCULAR HGB CONC 34.6 g/dl (32.0-36.5); MEAN CORPUSCULAR VOLUME 114.7 fl (80.0-96.0); MONO # 0.2 K/mm3 (0.0-0.8); MONO % 6.1 % (0.0-5.0); NEUTROPHILS # 2.8 K/mm3 (1.8-7.7); NEUTROPHILS % 73.3 % (36.0-66.0); PLATELET COUNT, AUTOMATED 141 k/mm3 (150-450); RED CELL DISTRIBUTION WIDTH 14.3 % (11.5-14.5); WHITE BLOOD COUNT 3.8 K/mm3 (4.0-10.0)
[2016-10-09 06:27] LABS: ALBUMIN 2.6 GM/DL (3.2-5.2); ANION GAP 8 MEQ/L (8-16); BLOOD UREA NITROGEN 8 MG/DL (7-18); CALCIUM LEVEL 8.3 MG/DL (8.5-10.1); CARBON DIOXIDE LEVEL 23 MEQ/L (21-32); CHLORIDE LEVEL 113 MEQ/L (98-107); CREATININE FOR GFR 0.59 MG/DL (0.55-1.02); GLOMERULAR FILTRATION RATE > 60.0 (>51); GLUCOSE, FASTING 89 MG/DL (70-105); POTASSIUM SERUM 3.9 MEQ/L (3.5-5.1); SODIUM LEVEL 144 MEQ/L (136-145)
[2016-10-09] MEDS: amLODIPine 5 MG TAB PO SCH ×2 (09:40→20:43)
[2016-10-09] MEDS ORDERED: KCL 20MEQ IN 0.45NS 1000ML 1,000 ML IV SCH (11:15)
[2016-10-09 14:00] VITALS: BP 129/73
[2016-10-09] MEDS: dexameTHASONE 4 MG/ML 1ML VIAL (J1100) IV SCH (14:55)
[2016-10-09] MEDS: PANTOPRAZOLE 40MG INJ (PROTONIX) (C9113) IV SCH (14:55)
[2016-10-09 20:25] VITALS: BP 124/75
--- NOTE | 2016-10-09 20:27 | IPN ---
DATE: 10/09/2016 SUBJECTIVE: Ms. Romano is seen this morning on her bedside. She is currently resting with her eyes closed. She did wake up. At present she denies any complaints. She was admitted with dehydration and hypernatremia and has been receiving intravenous (IV) fluid dextrose 5% in water (D5W). She has been nothing by mouth due to altered mentation. PHYSICAL EXAMINATION VITAL SIGNS: Temperature 97.9 degrees Fahrenheit, heart rate 102 per minute and respiratory rate 16 per minute. Blood pressure 119/70 mmHg and oxygen saturation 99% on room air. HEENT: Head is atraumatic. Neck is supple and without jugular venous distention (JVD) or thyroid enlargement. Oral mucosa is somewhat dry. Pupils are equal and sclerae are anicteric. CARDIAC/RESPIRATORY: Heart sounds are tachycardiac and lungs clear to auscultation. ABDOMEN: Soft and nontender. Bowel sounds are normal. EXTREMITIES: No cyanosis or clubbing. SKIN: No rash or ulcers. LABORATORY DATA: Today's labs show WBC count 3.8, hemoglobin 11.4 and hematocrit 33.0. Platelets 141. Sodium is 144 and potassium 3.9. Chloride 113, CO2 23, BUN 8 and creatinine 0.59. Glucose is 89 and calcium 8.3. Phosphorus 2.0 and albumin 2.6. PROBLEMS: 1. Acute renal failure secondary to dehydration. Kidney function has improved to normal range. She is receiving IV fluid as she has been nothing by mouth. I would suggest to advance her oral intake. 2. Hypernatremia. Sodium level is also back to normal range now. She has been receiving D5W. At present I am going to change her IV fluid to half-normal saline and will continue with potassium chloride 20 mEq in each liter. 3. Hypophosphatemia. This is most likely nutritional. The patient will need to start oral feeding. I suggest to start with full liquid diet and advance as tolerated. 4. Anemia. Her anemia is mild and does not need any intervention.
[2016-10-09] MEDS: NYSTATIN 500,000 U/5 ML SUSP UDC PO SCH (21:00)
--- NOTE | 2016-10-10 02:03 | IPN ---
DATE OF SERVICE: 10/09/2016 The patient is seen today in her room. She has been seen by the nephrologists. Her labs are improving. She is not speaking very much, although she is quite alert. She denies any pain anywhere. Denies any dyspnea, not having any cough or fevers or chills. She was seen yesterday by the cut out operator. His assessment was that her situation is entirely due to poor oral intake. He also ordered some phosphate for her because of her phosphorus being low. Her current medications include intravenous (IV) fluids, amlodipine and Tylenol. On examination, her temperature is 97.9, pulse 100 and regular, blood pressure 125/73, respirations 16, oxygen saturation 99% on room air. She is awake and alert, responsive to yes and no questions, but not otherwise very verbal. She has a right hemiparesis. She has scars on her head and alopecia related to prior treatment for her brain tumor. Lungs are clear. Her heart has a regular rhythm without any murmur, click or gallop. Abdomen is soft and nontender. There is no edema, although I would say her right hand and her right foot are puffy. Her hemoglobin today 11.4, WBCs 3800, had been 11,100 at the time of her admission. Deep venous thrombosis (DVT) scan a few days ago was negative. BUN today is 8, creatinine 0.6, glucose 89. ASSESSMENT: 1. Resolved dehydration with hypernatremia. 2. Glioblastoma. 3. Partial expressive aphasia. 4. Hypertension. PLAN: When I spoke to Dr. Leong today, he indicated that when he had spoken to the patient yesterday that she was not interested in pursuing hospice evaluation at this time. Indeed last week I had a conversation with her when she indicated the same thing and said she was feeling well, although clearly she is not able to sustain herself with her oral intake. This is approximately the third time that we have had to treat her with intravenous (IV) fluids and the only thing that is different right now is the fact that she had a significant tachycardia at the time of her admission. Otherwise we would have managed this in the residential as we did the first two episodes. I am going to start her on some Decadron because of her brain tumor, see if that helps her mentation at all. I feel that she should definitely be on a palliative care/hospice program. I am unclear whether any of the patient's family is in a position to the weigh in on her status. MTDD
[2016-10-10] MEDS: SODIUM CHLORIDE 0.9% INJ 10 ML SYR IV PRN ×2 (02:38→05:10)
[2016-10-10] MEDS: dexameTHASONE 4 MG/ML 1ML VIAL (J1100) IV SCH ×2 (02:38→17:02)
[2016-10-10 05:35] LABS: BASO % 0.2 % (0.0-1.0); EOS % 0.5 % (0.0-3.0); LARGE UNSTAINED CELL # 0.1 K/mm3 (0.0-0.4); LARGE UNSTAINED CELL % 2.2 % (0.0-4.0); LYMPH # 0.2 K/mm3 (1.5-4.5); LYMPH % 7.1 % (24.0-44.0); MEAN CORPUSCULAR HEMOGLOBIN 39.4 pg (27.0-33.0); MEAN CORPUSCULAR HGB CONC 34.8 g/dl (32.0-36.5); MEAN CORPUSCULAR VOLUME 113.2 fl (80.0-96.0); MONO # 0.1 K/mm3 (0.0-0.8); MONO % 3.5 % (0.0-5.0); NEUTROPHILS # 2.9 K/mm3 (1.8-7.7); NEUTROPHILS % 86.5 % (36.0-66.0); PLATELET COUNT, AUTOMATED 123 k/mm3 (150-450); RED CELL DISTRIBUTION WIDTH 14.5 % (11.5-14.5); WHITE BLOOD COUNT 3.3 K/mm3 (4.0-10.0)
[2016-10-10 05:50] LABS: ALBUMIN 2.7 GM/DL (3.2-5.2); ANION GAP 7 MEQ/L (8-16); BLOOD UREA NITROGEN 7 MG/DL (7-18); CALCIUM LEVEL 8.6 MG/DL (8.5-10.1); CARBON DIOXIDE LEVEL 23 MEQ/L (21-32); CHLORIDE LEVEL 114 MEQ/L (98-107); CREATININE FOR GFR 0.63 MG/DL (0.55-1.02); GLOMERULAR FILTRATION RATE > 60.0 (>51); GLUCOSE, FASTING 120 MG/DL (70-105); PHOSPHORUS LEVEL 2.2 MG/DL (2.5-4.9); POTASSIUM SERUM 4.5 MEQ/L (3.5-5.1); SODIUM LEVEL 144 MEQ/L (136-145)
[2016-10-10 06:20] VITALS: BP 118/56
[2016-10-10] MEDS: PANTOPRAZOLE 40MG INJ (PROTONIX) (C9113) IV SCH (07:36)
[2016-10-10] MEDS: SODIUM CHLORIDE 0.9% INJ 10 ML SYR IV SCH (07:36)
[2016-10-10] MEDS: NYSTATIN 500,000 U/5 ML SUSP UDC PO SCH ×4 (07:36→20:16)
[2016-10-10] MEDS: amLODIPine 5 MG TAB PO SCH ×2 (07:36→20:16)
[2016-10-10 14:00] VITALS: BP 121/78
[2016-10-10 22:00] VITALS: BP 135/73
[2016-10-11] MEDS: SODIUM CHLORIDE 0.9% INJ 10 ML SYR IV PRN ×2 (05:26→20:20)
[2016-10-11 05:41] LABS: BASO % 0.6 % (0.0-1.0); EOS % 0.4 % (0.0-3.0); LARGE UNSTAINED CELL % 0.6 % (0.0-4.0); LYMPH # 0.3 K/mm3 (1.5-4.5); LYMPH % 5.9 % (24.0-44.0); MEAN CORPUSCULAR HEMOGLOBIN 39.4 pg (27.0-33.0); MEAN CORPUSCULAR HGB CONC 34.6 g/dl (32.0-36.5); MEAN CORPUSCULAR VOLUME 113.9 fl (80.0-96.0); MONO # 0.2 K/mm3 (0.0-0.8); MONO % 4.7 % (0.0-5.0); NEUTROPHILS # 4.4 K/mm3 (1.8-7.7); NEUTROPHILS % 87.8 % (36.0-66.0); PLATELET COUNT, AUTOMATED 144 k/mm3 (150-450); RED CELL DISTRIBUTION WIDTH 14.9 % (11.5-14.5)
[2016-10-11 06:00] VITALS: BP 144/78
[2016-10-11 06:33] LABS: ANION GAP 8 MEQ/L (8-16); BLOOD UREA NITROGEN 13 MG/DL (7-18); CALCIUM LEVEL 9.1 MG/DL (8.5-10.1); CARBON DIOXIDE LEVEL 24 MEQ/L (21-32); CHLORIDE LEVEL 114 MEQ/L (98-107); GLOMERULAR FILTRATION RATE > 60.0 (>51); GLUCOSE, FASTING 105 MG/DL (70-105); PHOSPHORUS LEVEL 1.7 MG/DL (2.5-4.9); POTASSIUM SERUM 3.8 MEQ/L (3.5-5.1); SODIUM LEVEL 146 MEQ/L (136-145)
--- NOTE | 2016-10-11 07:29 | IPNPDOC ---
Subjective Date Seen The patient was seen on 10/11/16. Subjective Chief Complaint/HPI The patient is a 56-year-old female admitted with a reason for visit of Dehydration. Events since last encounter Continues with poor po intake. Renal function improving. Nephrology consulting and replacing phosphorous. Documentation noted hospice discussion with patient. Patient denies knowledge of hospice recommendations by oncology and PCP. Documented discussion held with mother who stated would like to think about it. General: Reports: ROS Unobtainable Constitutional: Denies: Fever Objective Physical Examination General Exam: Positive: Alert, Cooperative Neck Exam: Positive: Supple Chest Exam: Positive: Clear to auscultation Heart Exam: Positive: Rate Normal, Regular Rhythm Abdomen Exam: Positive: Normal bowel sounds, Soft, Negative: Tenderness Extremity Exam: Negative: Edema Skin Exam: Positive: Nl turgor and temperature Neuro Exam: Negative: Strength at 5/5 X4 ext (R hand squeeze much weaker than L ) Psych Exam: Positive: Other (shakes head yes or no. ) Assessment /Plan Problems (1) Glioblastoma Status: Acute Problem Text: Per most recent oncology note, this is recurrent and the patient is a hospice candidate. Discussed prognosis with patient and her mother. They are not sure what they want to do at this time. Continue decadron. (2) Dehydration with hypernatremia Status: Acute Problem Text: Nephrology consulted, managing phosphorus, sodium levels. Consider DC back to [facility] within next 24-48 hrs pending labs, nephrology recommendations. . (3) Expressive aphasia Status: Acute Problem Text: Patient speaks single words; once managed to string together a few for a phrase. She does shake and nod her head. Per her PCP, this is her baseline. (4) Hypertension Status: Chronic Problem Text: Home amlodipine continued. Plan/VTE VTE Prophylaxis Ordered?: Yes Plan Family Medicine Attending Note: I examined Ms. Romano this afternoon; I d/w Lala Laureano NP and I agree with her note. Per nursing, patient has been c /o nausea and has not been eating well for breakfast or lunch. Will start zofran. Speech eval was done - patient was able to swallow all consistencies but evaluation was limited because she did not want to participate. As she is not eating well today, I am very concerned that if discharged, she would come back to the hospital very quickly due to dehydration. We will see how she eats tonight after receiving zofran, but if PO intake remains poor, we need to re- address hospice with patient and her daughter. Nephrology has signed off at this point and recommended increasing Phos with PO intake. Will recheck BMP in the morning. (KES) VS, I&O, 24H, Fishbone Vital Signs/I&O Vital Signs Date Time Temp Pulse Resp B/P Pulse Ox O2 Delivery O2 Flow Rate FiO2 10/11/16 06:00 98.1 95 24 144/78 98 Room Air I&O- Last 24 Hours up to 6 AM 10/11/16 06:00 Intake Total 120 ml Output Total 0 ml Balance 120 ml Laboratory Data 24H LABS Laboratory Tests 2 10/11/16 05:27: Albumin 3.0L, Blood Urea Nitrogen 13#, Creatinine 0.60, Sodium Level 146H, Potassium Level 3.8, Chloride Level 114H, Carbon Dioxide Level 24, Anion Gap 8, White Blood Count 5.0, Red Blood Count 3.15L, Hemoglobin 12.4, Hematocrit 35.9L , Mean Corpuscular Volume 113.9H, Mean Corpuscular Hemoglobin 39.4H, Mean Corpuscular Hemoglobin Concent 34.6, Red Cell Distribution Width 14.9H, Platelet Count 144L, Neutrophils (%) (Auto) 87.8H, Lymphocytes (%) (Auto) 5.9L, Monocytes (%) (Auto) 4.7, Eosinophils (%) (Auto) 0.4, Basophils (%) (Auto) 0.6, Neutrophils # (Auto) 4.4, Lymphocytes # (Auto) 0.3L, Monocytes # (Auto) 0.2, Eosinophils # (Auto) 0.0, Basophils # (Auto) 0.0, Calcium Level 9.1, Glomerular Filtration Rate > 60.0, Large Unclassified Cells # 0.0, Large Unclassified Cells % 0.6, Phosphorus Level 1.7#L CBC/BMP Laboratory Tests 10/11/16 05:27 Anion Gap 8, Red Blood Count 3.15 L, Mean Corpuscular Volume 113.9 H, Mean Corpuscular Hemoglobin 39.4 H, Mean Corpuscular Hemoglobin Concent 34.6, Red Cell Distribution Width 14.9 H, Neutrophils (%) (Auto) 87.8 H, Lymphocytes (%) ( Auto) 5.9 L, Monocytes (%) (Auto) 4.7, Eosinophils (%) (Auto) 0.4, Basophils (% ) (Auto) 0.6, Neutrophils # (Auto) 4.4, Lymphocytes # (Auto) 0.3 L, Monocytes # (Auto) 0.2, Eosinophils # (Auto) 0.0, Basophils # (Auto) 0.0 Lala Laureano Oct 11, 2016 07:29 RADHA NUNEZ MD Oct 11, 2016 16:10
[2016-10-11] MEDS: amLODIPine 5 MG TAB PO SCH ×2 (09:00→20:19)
[2016-10-11] MEDS: SODIUM CHLORIDE 0.9% INJ 10 ML SYR IV SCH (09:13)
[2016-10-11] MEDS: OMEPRAZOLE 20 MG CAP PO SCH (09:13)
[2016-10-11] MEDS: NYSTATIN 500,000 U/5 ML SUSP UDC PO SCH ×4 (09:13→20:19)
--- NOTE | 2016-10-11 10:08 | IPN ---
DATE: 10/10/2016 Ms. Romano is seen this morning on her bedside. She is lying in the bed without any acute distress. She was admitted with dehydration and has been hydrated with IV fluid. Since yesterday, her oral intake has been resumed and currently her IV fluid has been stopped. PHYSICAL EXAMINATION: Her temperature is 97.1 degrees Fahrenheit, heart rate 93 per minute and respiratory rate 18 per minute. Blood pressure 118/56 mmHg and oxygen saturation 98% on room air. Physical exam is essentially otherwise unchanged. She has no cyanosis or clubbing and no peripheral edema. Her neck is supple and without JVD or thyroid enlargement. Heart: Sounds are tachycardiac. Lungs: Clear to auscultation. LABORATORY DATA; Today's labs show sodium level 144 and potassium 4.5. BUN 7 and creatinine 0.63. Phosphorus is 2.2. PROBLEM: 1. Acute renal failure. This has completely resolved and kidney function is normal at baseline. 2. Hypernatremia. Sodium level has also corrected and nebulized. IV fluid has already been stopped. The patient should continue with liberal oral fluid intake and should be encouraged for adequate nutrition. 3. Hypophosphatemia. This is nutritional and likely to improve as her oral diet has been resumed. From a renal standpoint, the patient is doing well and does not need any further followup. Please do not hesitate to call me should you need any further assistance. At this point I am signing off her case.
[2016-10-11] MEDS ORDERED: VARIBAR NECTAR 40% w/v 240ML SUSP BTL As Ordered ONE (10:26)
[2016-10-11] MEDS ORDERED: VARIBAR PUDDING 40% w/v 230ML TUBE As Ordered ONE (10:26)
[2016-10-11] MEDS ORDERED: E-Z PAQUE 60% w/v SUSP 355ML BOTTLE As Ordered ONE (10:26)
--- NOTE | 2016-10-11 11:02 | IPN ---
DATE: 10/10/2016 The patient is seen today on [facility] [address]. We discontinued her IV therapy yesterday. She has not had any fever or chills. She indicates that she drank at lunch time but did not eat. Denies any headache, denies cough or shortness of breath. Denies abdominal pain. CURRENT MEDICATIONS: - Decadron 2 mg IV every 12 hours - pantoprazole 40 mg IV every 24 hours - amlodipine 5 mg twice a day On examination, her temperature is 97.1 blood pressure 118/56, pulse 93 and regular, respirations are 17, O2 saturation 98% on room air. She is awake and alert. She does have a partial expressive aphasia, expressive mostly in one- word responses. Her eyes appear clear with some mild right facial weakness. She has alopecia and some scarring on her scalp from previous treatments for brain tumor. No neck masses, tenderness or adenopathy. No carotid bruits. Lungs are clear. Heart: Has regular rhythm without any murmur, click or gallop. Abdomen: Soft and nontender without any masses or organomegaly. Bowel sounds are active. She has chronic right hemiparesis. Positive Babinski sign on the right and negative on the left. Labs today show hemoglobin of 12.1, WBCs 3300. Her BUN is 7, creatinine 0.6, sodium 144, potassium 4.5, glucose was 120. ASSESSMENT Resolved dehydration with hypernatremia. Glioblastoma. Partial expressive aphasia. Hypertension. PLAN: The patient will continue on her current medication regimen. I think she seems a little bit brighter today and may be benefiting from the Decadron but this remains to be seen. I think I could get her switched over to oral medications at this time and then get her back to the care home. LUISANA
[2016-10-11 14:00] VITALS: BP 133/74
[2016-10-11] MEDS ORDERED: ONDANSETRON 4 MG TAB (S0181) PO PRN (16:00)
--- NOTE | 2016-10-11 17:12 | REP ---
COOKIE SWALLOW: The procedure was performed under the direct supervision of Dr. Larsen. The procedure was performed with Jojo Goldstein from speech pathology present. 5 mL aliquots of nectar, pudding and thin consistency barium was administered. With the pudding consistency barium, the patient was unable to swallow. Otherwise, there is no evidence of penetration or aspiration. A detailed report of this examination will be provided by speech pathology. 44 seconds of fluoroscopy time was utilized for this procedure. Reviewed by ZOE Reyna 10/12/2016 04:41 PEdited and Signed by Angus Larsen MD 10/12/2016 05:10 P
[2016-10-11 22:00] VITALS: BP 133/76
[2016-10-12] MEDS: SODIUM CHLORIDE 0.9% INJ 10 ML SYR IV PRN (05:48)
[2016-10-12 06:00] VITALS: BP 129/70
[2016-10-12 06:07] LABS: BASO % 0.4 % (0.0-1.0); EOS % 0.6 % (0.0-3.0); LARGE UNSTAINED CELL # 0.1 K/mm3 (0.0-0.4); LARGE UNSTAINED CELL % 1.4 % (0.0-4.0); LYMPH # 0.3 K/mm3 (1.5-4.5); MEAN CORPUSCULAR HEMOGLOBIN 39.2 pg (27.0-33.0); MEAN CORPUSCULAR HGB CONC 34.5 g/dl (32.0-36.5); MEAN CORPUSCULAR VOLUME 113.6 fl (80.0-96.0); MONO # 0.2 K/mm3 (0.0-0.8); MONO % 5.1 % (0.0-5.0); NEUTROPHILS % 84.5 % (36.0-66.0); PLATELET COUNT, AUTOMATED 137 k/mm3 (150-450); RED CELL DISTRIBUTION WIDTH 14.3 % (11.5-14.5); WHITE BLOOD COUNT 3.6 K/mm3 (4.0-10.0)
[2016-10-12 06:09] LABS: ADD MORPHOLOGY? YES
[2016-10-12 06:27] LABS: POLYCHROMASIA 1+
[2016-10-12 06:39] LABS: ALBUMIN 2.7 GM/DL (3.2-5.2); ALBUMIN/GLOBULIN RATIO 0.82 (1.00-1.93); ALKALINE PHOSPHATASE 93 U/L (45-117); ALT/SGPT 12 U/L (12-78); ANION GAP 4 MEQ/L (8-16); AST/SGOT 14 U/L (15-37); BILIRUBIN,TOTAL 0.4 MG/DL (0.2-1.0); BLOOD UREA NITROGEN 19 MG/DL (7-18); CARBON DIOXIDE LEVEL 27 MEQ/L (21-32); CHLORIDE LEVEL 114 MEQ/L (98-107); CREATININE FOR GFR 0.64 MG/DL (0.55-1.02); GLOMERULAR FILTRATION RATE > 60.0 (>51); GLUCOSE, FASTING 101 MG/DL (70-105); POTASSIUM SERUM 3.7 MEQ/L (3.5-5.1); SODIUM LEVEL 145 MEQ/L (136-145)
[2016-10-12] MEDS ORDERED: DEXA2TA PO (07:56)
[2016-10-12] MEDS: NYSTATIN 500,000 U/5 ML SUSP UDC PO SCH (09:33)
[2016-10-12 09:34] VITALS: BP 129/70
[2016-10-12] MEDS: OMEPRAZOLE 20 MG CAP PO SCH (09:34)
[2016-10-12] MEDS: amLODIPine 5 MG TAB PO SCH (09:34)
[2016-10-12] MEDS: SODIUM CHLORIDE 0.9% INJ 10 ML SYR IV SCH (09:35)
--- NOTE | 2016-10-12 11:46 | DSES ---
DATE OF ADMISSION: 10/06/2016 DATE OF DISCHARGE: ATTENDING PHYSICIAN: Dr. Jacobo Leong PRIMARY CARE PROVIDER: Dr. Thomas Veras HISTORY OF PRESENT ILLNESS: 56-year-old female with a past medical history of glioblastoma, CVA, hypernatremic dehydration who presented to the emergency room from [facility] due to dehydration, likely secondary to poor oral intake and increased lethargy. Workup showed some significant hypernatremia with a sodium of 169, potassium 3.4 , creatinine 1.53 and a BUN of 62. The patient was admitted for hypernatremia. Nephrology was consulted. HOSPITAL COURSE: The patient was placed on D5W with potassium chloride 40 mEq, which continued to improve her electrolyte balance. BMP was monitored every 8 hours. The patient continued to improve with hydration and electrolyte replacement. Nephrology replaced electrolytes and phosphorous as indicated. Multiple conversations were held with the patient's mother, as well as the patient regarding poor prognosis of glioblastoma. Her oncology note was reviewed with both the patient and the mother, both are hesitant to agree to hospice at this time. Dr. Veras, the patient's primary care provider, evaluated the patient over the weekend, and is willing to take the patient back to [facility] and will continue with end of life discussions with family. On 10/10/2016, the patient was evaluated by nephrology and signed off as acute renal failure, hyponatremia and hypophosphatemia has all resolved. The patient is status post cookie swallow for concerns of choking on her applesauce. The patient did have a cookie swallow, which was incomplete; however, per speech therapy, she may continue with a pureed diet. The patient declined food bolus. There were no signs of aspiration noted. The patient has shown no signs of aspiration pneumonia. She is afebrile. No cough is noted. Lungs are clear. CONSULTATIONS: Nephrology. IMAGING: Vascular ultrasound, which was negative for deep vein thrombosis (DVT) . Cookie swallow was completed. The patient tolerated putting consistency barium but no evidence of penetration or aspiration. The patient declined food bolus. Per speech therapy, she may continue with pureed diet. PHYSICAL EXAMINATION: Vital signs stable. She is afebrile. LABORATORIES: Today, white blood cell count of 3000, hemoglobin and hematocrit of 11 and 32. Chemistry shows a stable sodium of 145, potassium 3.7, creatinine 0.64. Albumin is low at 2.7, and this is obviously secondary to poor oral intake. PHYSICAL EXAMINATION: HEENT: Neck is supple without lymphadenopathy. CARDIOVASCULAR: Heart rate and rhythm are regular. PULMONARY: Lungs are clear. ABDOMEN: Soft and nontender. EXTREMITIES: Bilateral lower extremities are without edema. NEUROLOGIC: The patient is alert. She does respond yes and no with nodding of the head. Occasional moaning or repeating words that were stated to her. Her responses do seem appropriate. ASSESSMENT: 1. Hypernatremia. 2. Acute kidney injury. 3. Hypophosphatemia. 4. Glioblastoma. 5. History of hypertension. 6. History of hyperlipidemia. PLAN: The patient will be discharged back to [facility]. Activities as tolerated. Out of bed with assistance. Diet is pureed. MEDICATIONS: - dexamethasone 2 mg by mouth every 8 hours - acetaminophen 650 mg suppository every 4 hours as needed for pain or fever - Tylenol 325 mg tablets, she may take two by mouth every 4 hours as needed for pain or fever - amlodipine 5 mg by mouth twice a day - aspirin 81 mg daily - Dulcolax suppository 10 mg per rectum daily as needed for constipation - clonidine 0.1 mg by mouth twice a day - Enema one per rectum daily as needed for constipation - Ensure Enlive one can daily - hydroxyurea 500 mg capsule by mouth daily - milk of magnesia 30 mL by mouth daily as needed for constipation - mirtazapine 30 mg by mouth daily at bedtime - MiraLAX 17 grams by mouth daily - Senna tablets two by mouth daily The patient is discharged in stable and satisfactory condition. Primary care provider to have discussion regarding poor prognosis with patient and healthcare proxy, which is her mother. Attending note: I saw and evaluated the patient on the day of discharge, and I agree with the discharge plan of care as discussed and documented above by Waleska Laureano. MD LUISANA Cazares
== END 2016-10-12 12:37 | DRG 422 ==
LOC: M ED 10:28 → M ED INP 12:54 → M PCU 16:40 → M MSPAV 10-07 23:12
PROVIDERS: ADMIT Internal Medicine; ATTEND Family Medicine
DX: E87.0 Hyperosmolality and hypernatremia (principal); C71.9 Malignant neoplasm of brain, unspecified; N17.9 Acute kidney failure, unspecified; I69.951 Hemiplegia and hemiparesis following unspecified cerebrovascular disease affecting right dominant side; E86.0 Dehydration; E83.39 Other disorders of phosphorus metabolism; I10 Essential (primary) hypertension; E78.5 Hyperlipidemia, unspecified; Z79.899 Other long term (current) drug therapy; Z79.82 Long term (current) use of aspirin; I69.920 Aphasia following unspecified cerebrovascular disease

== ENCOUNTER → 2016-10-16 | Outpatient (REF) | payer MEDICAID ==
[~2016-10-16] MED LIST changes: +ACEP650S PR; +ASPI1TAB PO; +DEXA2TA PO; +DULC10SU2 PR; +ENEM1ENE4 PR; +ENSULIQ64 PO; +MIRA33504 PO; +MIRT30TA3 PO; +SENN1TAB2 PO
[2016-10-16 07:06] LABS: ANION GAP 4 MEQ/L (8-16); BLOOD UREA NITROGEN 30 MG/DL (7-18); CALCIUM LEVEL 9.1 MG/DL (8.5-10.1); CARBON DIOXIDE LEVEL 29 MEQ/L (21-32); CHLORIDE LEVEL 117 MEQ/L (98-107); CREATININE FOR GFR 0.64 MG/DL (0.55-1.02); GLOMERULAR FILTRATION RATE > 60.0 (>51); GLUCOSE, FASTING 99 MG/DL (70-105); POTASSIUM SERUM 4.5 MEQ/L (3.5-5.1); SODIUM LEVEL 150 MEQ/L (136-145)
== END ==
LOC: SKLAB5 07:32
PROVIDERS: ATTEND Family Medicine
DX: E86.0 Dehydration (principal)

== ENCOUNTER → 2016-10-18 | Outpatient (REF) | payer MEDICAID ==
[2016-10-18 09:08] LABS: ANION GAP 8 MEQ/L (8-16); BLOOD UREA NITROGEN 36 MG/DL (7-18); CALCIUM LEVEL 9.5 MG/DL (8.5-10.1); CARBON DIOXIDE LEVEL 27 MEQ/L (21-32); CHLORIDE LEVEL 115 MEQ/L (98-107); CREATININE FOR GFR 0.66 MG/DL (0.55-1.02); GLOMERULAR FILTRATION RATE > 60.0 (>51); GLUCOSE, FASTING 112 MG/DL (70-105); SODIUM LEVEL 150 MEQ/L (136-145)
== END ==
LOC: SKLAB5 07:30
PROVIDERS: ATTEND Family Medicine
DX: E86.0 Dehydration (principal)